=== PATIENT | male | born 1965 | race Caucasian/White ===

== ENCOUNTER 2019-05-01 16:31 | Emergency (ER) | payer OTHER ==
[~2019-05-01] VITALS: Ht 188 cm; Wt 97.3 kg
[~2019-05-01 16:31] MED LIST: ALBU18HF INHALATION; ALBU8.5H8 INH; AZIT250T PO; CEPH-443 PO; PRED20TA PO; SULF1TAB31 PO; TBR.3OO LEFT EYE
[2019-05-01 18:17] VITALS: BP 140/76; PULSE 69; RESP 18; Ht 188 cm; Wt 97.3 kg
== END 2019-05-01 18:30 | disposition home or self-care (01) ==
LOC: E/R 16:31
DX: J20.9 Acute bronchitis, unspecified (principal); H00.014 Hordeolum externum left upper eyelid; I10 Essential (primary) hypertension; F17.210 Nicotine dependence, cigarettes, uncomplicated; J45.909 Unspecified asthma, uncomplicated
CPT/HCPCS: 99283